=== PATIENT | male | born 1970 | race Caucasian/White ===

== ENCOUNTER 2021-04-26 16:30 | Outpatient (CLI) | payer BC | END 2021-04-26 16:31 | disposition home or self-care (01) | LOC: SLEEPLAB 16:30 | PROVIDERS: ATTEND Family Medicine | DX: G47.33 Obstructive sleep apnea (adult) (pediatric) (principal); R09.89 Other specified symptoms and signs involving the circulatory and respiratory systems; J45.909 Unspecified asthma, uncomplicated | CPT/HCPCS: 95806 ==

== ENCOUNTER 2021-10-30 19:30 | Outpatient (CLI) | payer BC | END 2021-10-30 19:31 | disposition home or self-care (01) | LOC: SLEEPLAB 19:30 | PROVIDERS: ATTEND Internal Medicine Critical Care Medicine | DX: G47.33 Obstructive sleep apnea (adult) (pediatric) (principal) | CPT/HCPCS: 95811 ==

== ENCOUNTER 2024-01-09 10:54 | Outpatient (CLI) | payer BC | END 2024-01-09 10:55 | disposition home or self-care (01) | LOC: SCSRAD 10:54 | DX: R06.00 Dyspnea, unspecified (principal); J98.4 Other disorders of lung | CPT/HCPCS: 71046 ==

== ENCOUNTER 2024-01-16 15:11 | Outpatient (CLI) | payer BC | END 2024-01-16 15:12 | disposition home or self-care (01) | LOC: CT 15:11 | DX: R91.8 Other nonspecific abnormal finding of lung field (principal); J98.09 Other diseases of bronchus, not elsewhere classified | CPT/HCPCS: 71250 ==